=== PATIENT | male | born 1990 | race Caucasian/White ===

== ENCOUNTER 2025-04-01 13:12 | Emergency (ER) | payer OTHER, SELFPAY ==
--- NOTE | ~2025-04-01 | XR_ITS ---
EXAMINATION: XR chest 2V 04/01/2025 13:39 INDICATION: Chest pain PROCEDURE: 2 view chest COMPARISON: No prior studies for comparison. FINDINGS: The lungs are clear. The cardiomediastinal silhouette is within normal limits. There are no pleural effusions. There is no pneumothorax suspected. IMPRESSION: 1: NO ACUTE CARDIOPULMONARY DISEASE. Reviewed, dictated and finalized at location B.
--- NOTE | 2025-04-01 13:13 | ECG_ITS ---
Test Date: 2025-04-01 13:21:28 Measurements Intervals [place] Rate: 74 P: 29 AL: 147 QRS: 8 QRSD: 95 T: 24 QT: 384 QTc: 426 Interpretive Statements SINUS RHYTHM MINIMAL Q WAVES- HIGH LATERAL LEADS BORDERLINE ECG No previous ECG available for comparison Electronically Signed On 04-01-2025 13:44:12 CDT by Teodoro Werner D.O.
[2025-04-01 13:21] VITALS: O2SAT 99
[2025-04-01 13:23] VITALS: BP 142/85; PULSE 77; RESP 11; O2SAT 98
[2025-04-01] MEDS: KETOROLAC 15 MG/ML VIAL (*BKC) IV PUSH (13:33)
[2025-04-01] MEDS: ASPIRIN 81 MG CHEWABLE TABLET 324 MG PO (13:33)
[2025-04-01 13:35] LABS: Basophils Absolute Auto 0.1 K/mm3 (0.0-0.1); Basophils Percent Auto 1.2 % (0.2-1.2); Eosinophils Absolute Auto 0.2 K/mm3 (0-0.3); Eosinophils Percent Auto 2.6 % (0-4.4); Hematocrit 50.7 % (42.0-52.0); Immature Granulocyte Absolute 0.03 K/mm3 (0.00-0.031); Immature Granulocyte Percent A 0.4 % (0-0.5); Lymphocytes Absolute Auto 2.39 K/mm3 (0.9-3.2); Lymphocytes Percent Auto 28.2 % (18.3-44.2); Mean Corpuscular HGB Conc 33.5 g/dl (32-36); Mean Corpuscular Hemoglobin 29.7 pg (26-34); Mean Corpuscular Volume 88.5 fl (80-100); Mean Platelet Volume 9.8 fl (7.4-10.4); Monocytes Absolute Auto 0.5 K/mm3 (0.1-0.6); Monocytes Percent Auto 6.4 % (2.6-8.5); Neutrophils Absolute Auto 5.2 K/mm3 (1.3-6.7); Neutrophils Percent Auto 61.2 % (45.5-73.1); Platelet Count Result 256 k/mm3 (150-375); Red Blood Count 5.73 M/mm3 (4.6-6.20); White Blood Count 8.5 K/mm3 (4.5-10.0)
--- NOTE | 2025-04-01 13:39 | ED_ITS ---
HPI - Chest Pain General Chief Complaint: Chest Pain Stated Complaint: really bad chest pain Time Seen by Provider: 04/01/25 13:19 History of Present Illness HPI narrative: 34-year-old male with no pertinent past medical history presenting to the emergency department with sharp left-sided chest pain ongoing for several days. He states he has a very high anxiety and been more stressed lately. He wants to make sure that he is not having heart attack. Denies any cardiac history, no trouble breathing, epigastric pain, back pain, fever, chills. No trauma or injury. No cardiac history to his knowledge. Has not take any symptom controlling medications. No DVT or history of leg swelling. Related Data Allergies Allergy/AdvReac Type Severity Reaction Status Date / Time Cephalosporins Allergy Mild RASH Verified 06/07/17 18:57 Review of Systems 2 Review of Systems: As reviewed above in HPI Exam 2 Narrative: GENERAL: [Well-appearing, well-nourished, and in no acute distress.] HEAD: [Normocephalic, atraumatic.] EYES: [PERRLA and EOMI.] ENT: Nares clear, no rhinorrhea or epistaxis. Mucous membranes moist. NECK: Supple. CHEST: [Clear to auscultation. No respiratory distress.] HEART: [Regular rate and rhythm]. No murmur heard. [Normal peripheral pulses.] ABDOMEN: [Soft, nondistended], [nontender], [No rigidity or guarding] EXTREMITIES: Normal range of motion. [No edema.] SKIN: Warm, dry, no rash. NEURO: [No focal deficits]. Alert and oriented [x3.] PSYCH: [Normal mood and affect.] Course Vital Signs Vital signs: Vital Signs Pulse Oximetry 99 04/01/25 13:21 Oxygen Delivery Room Air 04/01/25 13:21 Pulse Rate 77 04/01/25 13:23 Respiratory Rate 11 L 04/01/25 13:23 Blood Pressure 142/85 H 04/01/25 13:23 Pulse Oximetry 98 04/01/25 13:23 Oxygen Delivery Room Air 04/01/25 13:21 MDM - Chest Pain MDM Narrative Medical decision making narrative: 34-year-old male presenting with left-sided chest pain for several days. He states that he is feeling very anxious and been under lot of stress lately but wants to make sure he is not having heart attack. No cardiac history to his knowledge. Rates 5/10 sharp pain in the left side of his chest. No difficulty breathing, back pain, epigastric pain, nausea vomiting, fever, chills. Vital signs reassuring with no tachycardia, fever, hypoxia. Normal strong symmetric pulses in clear breath sounds. Given his age cardiac workup was ordered including a chest x-ray, EKG, CBC, CMP, troponin. EKG appears normal sinus rhythm. Patient meets PERC criteria does not need any further workup for thromboembolic disease. Patient can be safely discharged upon negative initial troponin given low heart score. Workup shows no leukocytosis or anemia. Normal platelet count. Coagulation panel was normal. Electrolytes are unremarkable. Normal renal function. Normal glucose. LFTs are mildly elevated but not significant and unrelated to his left upper chest wall pain. Negative troponin. Negative lipase. Chest x- ray shows no acute cardiopulmonary disease. EKG shows sinus rhythm, no ST segment elevations, depressions. Patient is safe for discharge home at this time with outpatient follow-up. Medical Records Data Attestation: I reviewed the patient's medical records. Lab Data Attestation: I reviewed the patient's lab results. 04/01/25 13:30 04/01/25 13:30 Labs: Lab Results 04/01/25 Range/Units 13:30 WBC 8.5 (4.5-10.0) K/mm3 RBC 5.73 (4.6-6.20) M/mm3 Hgb 17.0 (14.0-18.0) g/dL Hct 50.7 (42.0-52.0) % MCV 88.5 (80-100) fl MCH 29.7 (26-34) pg MCHC 33.5 (32-36) g/dl RDW 13.0 (11.5-14.5) % Plt Count 256 (150-375) k/mm3 MPV 9.8 (7.4-10.4) fl Immature Gran % (Auto) 0.4 (0-0.5) % Neut % (Auto) 61.2 (45.5-73.1) % Lymph % (Auto) 28.2 (18.3-44.2) % [place] % (Auto) 6.4 (2.6-8.5) % Eos % (Auto) 2.6 (0-4.4) % Baso % (Auto) 1.2 (0.2-1.2) % Lymph # (Auto) 2.39 (0.9-3.2) K/mm3 [place] # (Auto) 0.5 (0.1-0.6) K/mm3 Eos # (Auto) 0.2 (0-0.3) K/mm3 Baso # (Auto) 0.1 (0.0-0.1) K/mm3 Abs Immat Gran (auto) 0.03 (0.00-0.031) K/mm3 Absolute Neuts (auto) 5.2 (1.3-6.7) K/mm3 Absolute Nucleated RBC 0.000 (0.0-0.012) K/mm3 Nucleated RBC % 0.0 (0.0-0.2) % PT 12.1 (11.1-14.7) Seconds INR 0.9 APTT 25.1 (22.3-36.8) Seconds Sodium 141 (137-145) mmol/L Potassium 4.1 (3.4-5.0) mmol/L Chloride 105 (98-107) mmol/L Carbon Dioxide 23 (22-30) mmol/L Anion Gap 13 H (4-12) mmol/L BUN 16 (9-20) mg/dL Creatinine 0.91 (0.7-1.3) mg/dL Estim Creat Clear Calc 117 ml/min Estimated GFR > 60 (59 - ) Glucose 105 (65-110) mg/dL Calcium 9.5 (8.4-10.2) mg/dL Total Bilirubin 2.0 H (0.2-1.3) mg/dL AST 36 (17-59) U/L ALT 53 H (6-50) U/L Alkaline Phosphatase 49 (38-126) U/L Troponin I < 0.012 (0.000-0.034) ng/mL Total Protein 8.4 H (6.3-8.2) g/dL Albumin 4.8 (3.5-5.1) g/dL Lipase 86 (23-300) U/L Imaging Data Attestation: I personally reviewed and interpreted this imaging study as follows: My impression: Impressions Chest X-Ray 04/01/25 13:48 IMPRESSION: 1: NO ACUTE CARDIOPULMONARY DISEASE. ECG Data EKG #1: Attestation: I personally reviewed and interpreted this ECG as follows: ECG completion date: 04/01/25 ECG completion time: 13:21 Prior ECG tracings: not available for review Interpretation: No ST segment elevations, depressions. QTC 426, QRS 95, TN interval 147. Rate of 74 beats per minute. No previous EKG for comparison. Sinus rhythm final interpretation. Regular rate rhythm and axis. Discharge Plan Discharge Clinical Impression: Chest pain, Anxiety Patient Disposition: Home Condition: Stable Instructions: Antibiotic Form, Chest Pain (ED) Additional Instructions: Your cardiac markers are undetectable and your EKG looks good. X-ray without any acute concerns. Your laboratory studies are largely unremarkable, you have a very minor elevation in your liver function panel but this is not related to your chest discomfort and should be followed up with your primary care provider outpatient. Return with any new/worsening or persisting concerns or any emergencies Patient Language: Bengali Follow-up/Referrals: Amanda,ESVIN Ceron [Primary Care Provider] - Time of Disposition: 14:03 Quality HEART score for chest pain patients History: slightly suspicious ECG: normal Age: < or = to 45 years Risk factors: 1 or 2 risk factors Troponin: < or = to 1x normal limit Heart score: 1
[2025-04-01 13:45] LABS: Alanine Aminotransferase 53 U/L (6-50); Albumin Level 4.8 g/dL (3.5-5.1); Alkaline Phosphatase 49 U/L (38-126); Anion Gap 13 mmol/L (4-12); Aspartate Amino Transferase 36 U/L (17-59); Blood Urea Nitrogen 16 mg/dL (9-20); Calcium 9.5 mg/dL (8.4-10.2); Carbon Dioxide 23 mmol/L (22-30); Chloride 105 mmol/L (98-107); Estimated CRCL calculation 117 ml/min; Estimated Glomerular Filt Rate > 60; Glucose 105 mg/dL (65-110); Lipase 86 U/L (23-300); Potassium 4.1 mmol/L (3.4-5.0); Sodium 141 mmol/L (137-145); Total Protein 8.4 g/dL (6.3-8.2)
[2025-04-01 13:47] LABS: INR 0.9; Partial Thromboplastin Time 25.1 Seconds (22.3-36.8); Prothrombin Time 12.1 Seconds (11.1-14.7)
[2025-04-01 13:57] LABS: Troponin I < 0.012 ng/mL (0.000-0.034)
== END 2025-04-01 14:31 | disposition home or self-care (01) ==
PROVIDERS: Emergency Medicine; Emergency Provider Student in an Organized Health Care Education/Training Program; PCP Physician Assistant
DX: R07.9 Chest pain, unspecified (principal); F41.9 Anxiety disorder, unspecified
CPT/HCPCS: 36415; 71046; 80053; 83690; 84484; 85025; 85610; 85730; 93005; 96374; 99284; A9270; J1885